=== PATIENT | male | born 1960 | race Two or more races ===

== ENCOUNTER 2021-10-25 06:26 | Day surgery (SDC) | payer OTHER ==
[~2021-10-25 06:26] MED LIST: SYNTHROID125 MCG PO
== END 2021-10-25 17:20 | disposition home or self-care (01) ==
LOC: CIR.AMB 06:26
PROVIDERS: ATTEND Orthopaedic Surgery Hand Surgery
DX: S62.606A Fracture of unspecified phalanx of right little finger, initial encounter for closed fracture (principal); S56.425A Laceration of extensor muscle, fascia and tendon of right ring finger at forearm level, initial encounter; I10 Essential (primary) hypertension; E03.9 Hypothyroidism, unspecified; E16.2 Hypoglycemia, unspecified; G43.909 Migraine, unspecified, not intractable, without status migrainosus; Z20.822 Contact with and (suspected) exposure to COVID-19